=== PATIENT | female | born 1995 | race Caucasian/White ===

== ENCOUNTER 2024-07-16 19:20 | Emergency (ER) | payer MEDICAID, OTHER ==
[~2024-07-16] VITALS: Ht 160 cm; Wt 56.7 kg
[2024-07-16] MEDS: LIDOCAINE HCL/PF 1% 30 ML VIAL TP ONE (20:30)
[2024-07-16] MEDS ORDERED: LIDOCAINE HCL/MPF 1% 30 ML VIAL IJ ONE (20:37)
[2024-07-16 22:05] VITALS: BP 121/87; TEMP 98; O2SAT 98
== END 2024-07-16 22:05 | disposition home or self-care (01) ==
LOC: ER 19:22
DX: S61.210A Laceration without foreign body of right index finger without damage to nail, initial encounter (principal); Z88.1 Allergy status to other antibiotic agents; W26.0XXA Contact with knife, initial encounter; Y93.89 Activity, other specified; Y92.89 Other specified places as the place of occurrence of the external cause; Y99.8 Other external cause status
CPT/HCPCS: 12001; 99282; J3490